=== PATIENT | female | born 1965 | race Caucasian/White ===

== ENCOUNTER 2018-04-07 15:18 | Emergency (ER) | payer OTHER ==
[~2018-04-07] VITALS: Ht 160 cm; Wt 66.2 kg
[2018-04-07 15:22] VITALS: Ht 160 cm; Wt 66.2 kg
[2018-04-07 17:57] LABS: BASOPHIL % 0.4 % (0-2); PLATELET COUNT 321 x10^3mcL (130-400); RED CELL DISTRIBUTION WIDTH 14.2 % (11.5-14.5)
[2018-04-07 18:12] LABS: ALBUMIN 4.6 g/dL (3.4-5.0); ALKALINE PHOSPHATASE 143 U/L (46-116); ALT/SGPT 70 U/L (14-59); AST/SGOT 40 U/L (15-37); BILIRUBIN TOTAL 0.39 mg/dL (0.20-1.00); CALCIUM 9.1 mg/dL (8.5-10.1); CHLORIDE SERUM 98 mmol/L (98-107); CREATININE SERUM 0.7 mg/dL (0.6-1.0); GFR1 > 60 mL/min; GLUCOSE SERUM 163 mg/dL (74-106); LIPASE 112 IU/L (73-393); SODIUM SERUM 137 mmol/L (136-145)
[2018-04-07 18:14] LABS: TOTAL PROTEIN, SERUM 9.1 g/dL (6.4-8.2)
[2018-04-07 22:31] VITALS: BP 158/82
== END 2018-04-07 22:31 | disposition home or self-care (01) ==
LOC: ED 15:18
PROVIDERS: Emergency Medicine
DX: K52.9 Noninfective gastroenteritis and colitis, unspecified (principal); R42 Dizziness and giddiness
CPT/HCPCS: J1885; J2405; J7030; J8597